=== PATIENT | male | born 1975 | race Caucasian/White ===

== ENCOUNTER 2022-06-01 14:57 | Inpatient (IN) | payer OTHER, SELFPAY ==
[2022-06-01 15:46] VITALS: BP 131/84; PULSE 129; RESP 16; TEMP 36.8; O2SAT 96; BMI 27.0
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
[2022-06-01 16:10] LABS: MANUAL DIFF FLAG NO
[2022-06-01 16:12] LABS: Appearance Urine Clear; Basophils Percent Auto 0.4 % (0-2); Color Urine Yellow; Eosinophils Absolute Auto 0.1 X10*3/uL (0.0-0.4); Eosinophils Percent Auto 0.5 % (0-4); Glucose Urine UA Negative (Negative); Hematocrit 47.3 % (42.0-52.0); Hemoglobin 17.5 g/dl (14.0-18.0); Imm Gran Abs Auto 0.03 X10*3/uL (0.00-0.03); Imm Gran Pct Auto 0.3 % (0.0-0.4); Leukocyte Esterase Urine Trace (Negative); Lymphocytes Absolute Auto 2.4 X10*3/uL (1.2-4.9); Lymphocytes Percent Auto 23.6 % (20-40); Mean Corpuscular Hemoglobin 32.8 pg (27.0-33.0); Mean Corpuscular Volume 88.6 fL (80.0-98.0); Mean Platelet Volume 9.7 fL (9.4-12.4); Monocytes Absolute Auto 0.7 X10*3/uL (0.1-1.2); Monocytes Percent Auto 6.8 % (2-11); Neutrophils Percent Auto 68.4 % (45-73); Nitrite Urine Negative (Negative); PH 6.5 (5.0-8.0); Platelet Count 226 X10*3/uL (160-400); Red Blood Count 5.34 X10*6/uL (4.60-5.80); Red Cell Distribution Width 11.8 % (11.0-16.0); Urine Blood Negative (Negative); Urine Ketones Negative (Negative); Urine Protein Negative (Neg-Trace); White Blood Count 10.2 X10*3/uL (4.8-10.8)
[2022-06-01 16:17] LABS: Bacteria Urine None Seen (None Seen); Hyaline Casts Urine 0-2 /LPF (0-2); RBC Urine 0-2 /HPF (0-2); Squamous Epithelial Cell Urine 0-2 /HPF (0-2); WBC Urine 0-5 /HPF (0-5)
[2022-06-01 16:30] LABS: COVID-19 Test Negative (Negative)
[2022-06-01 16:31] LABS: Amphetamine Screen Urine POSITIVE (Not Detect); Barbiturates, Urine Not Detected (Not Detect); Benzodiazepines Screen Urine Not Detected (Not Detect); Cannabinoid Screen Urine Not Detected (Not Detect); Cocaine Screen Urine Not Detected (Not Detect); Fentanyl, urine Not Detected (Not Detect); Opiate Screen Urine Not Detected (Not Detect); Phencyclidine Screen Urine Not Detected (Not Detect)
[2022-06-01 16:32] LABS: Alanine Aminotransferase 128 U/L (0-40); Albumin Level 4.6 g/dL (3.5-5.0); Alkaline Phosphatase 73 U/L (39-117); Anion Gap 19 (12-20); Aspartate Amino Transferase 86 U/L (5-37); Bilirubin Direct 0.8 mg/dL (0.0-0.5); Bilirubin Total 1.9 mg/dL (0.0-1.0); Blood Urea Nitrogen 13 mg/dL (9-16); Calcium 9.6 mg/dL (8.4-10.2); Carbon Dioxide 25 mmol/L (22-29); Chloride 95 mmol/L (96-108); Creatinine Clr Calc Pharmacy 116.5; Estimated Glomerular Filt Rate > 60; Ethanol 181 mg/dL; Glucose Random 161 mg/dL (60-115); Potassium 3.5 mmol/L (3.3-5.1); Sodium 135 mmol/L (135-145); Total Protein 7.8 g/dL (6.5-8.0)
--- NOTE | 2022-06-01 16:35 | ECG_ITS ---
Test Reason : TACHYCARDIA Blood Pressure : / mmHG Vent. Rate : 114 BPM Atrial Rate : 114 BPM P-R Int : 188 ms QRS Dur : 100 ms QT Int : 324 ms P-R-T Axes : 049 066 034 degrees QTc Int : 446 ms Sinus tachycardia Otherwise normal ECG When compared with ECG of 09-AUG-2012 11:50, Vent. rate has increased BY 51 BPM Referred By: Laura Zhou Electronically Signed By:GEORGINA WADE
[2022-06-01 16:38] VITALS: BP 129/87; PULSE 112; RESP 18; TEMP 37.1; O2SAT 95
[2022-06-01] MEDS: chlordiazePOXIDE HCl 25 MG CAPSULE PO (16:50)
[2022-06-01 21:02] VITALS: BP 123/90; PULSE 116; RESP 20; TEMP 37.4; O2SAT 95
[2022-06-01] MEDS: LORazepam 1 MG TABLET 2 MG PO (21:41)
--- NOTE | 2022-06-02 05:59 | PC.NURSE ---
Patient slept through the night, no distress observed/reported, asymptomatic of withdrawal at this time, PRN Ativan 2 mg administered at 2141, behavior pleasant and non concerning, medication compliant, patient was assessed by N, patient engaged well, disposition per [facility] is section 12 inpatient bed search, will continue to monitor.
[2022-06-02 06:38] VITALS: BP 122/83; PULSE 85; RESP 16; TEMP 36.6; O2SAT 95
[2022-06-02 12:08] VITALS: BP 122/87; PULSE 76; RESP 15; O2SAT 96
[2022-06-02] MEDS: LORazepam 1 MG TABLET 2 MG PO ×2 (12:09→20:31)
[2022-06-02] MEDS: Nicotine 14 MG PATCH.TD24 TRANSDERMA (17:10)
[2022-06-02 20:36] VITALS: BP 125/93; PULSE 87; RESP 16; TEMP 36.6; O2SAT 98
[2022-06-03 05:32] VITALS: BP 125/90; PULSE 84; RESP 16; TEMP 36.6; O2SAT 98
--- NOTE | 2022-06-03 06:16 | PC.NURSE ---
Patient slept through the night, no distress observed/reported, behavior non concerning and pleasant, disposition per [facility] is section 12 inpatient bed search, medication compliant, no homed medication, VSS, will continue to monitor.
[2022-06-03] MEDS: Nicotine 21 MG PATCH.TD24 TRANSDERMA (11:19)
[2022-06-03] MEDS: LORazepam 1 MG TABLET 2 MG PO (11:19)
[2022-06-03 14:09] LABS: COVID-19 Test Negative (Negative); IDNOW Serial# 16C4AD1C
[2022-06-03] MEDS: LORazepam 1 MG TABLET PO ×2 (16:28→20:32)
[2022-06-03] MEDS: Gabapentin 300 MG CAPSULE PO ×2 (16:28→20:33)
--- NOTE | 2022-06-03 17:53 | PC.NURSE ---
Pt signed 3-day notice on 06/03/22, up on 06/06/22
[2022-06-03 18:00] VITALS: BP 127/83; PULSE 92; TEMP 36.8; O2SAT 98
--- NOTE | 2022-06-03 19:02 | PC.ADMIT ---
pt is a 46 year old male who presents with [facility] with a plan and manic moods.pt is tox positve for amphetamines. pt reports drinking alcohol before admission. pt recently separately from his and is feels like his life is falling apart, but he wants to put it back together. pt is in a long legal young with ex and is form his 2 children which gives him anxiety and he feels like he isn't being the best dad he can for his children. pt appears to be engaged during admission and bright. pt is open to sharing experiences about his past. pt says he want to get on mood stabilizers and says antidepressants do not work. pt signed a 3 day that is up on the 06 of june. pt wants to get better for his children and his aging mother who requires help in the home.
[2022-06-03] MEDS: traZODone HCL 50 MG TABLET PO (21:45)
[2022-06-04 06:00] VITALS: BP 127/70; PULSE 85; RESP 18; TEMP 36.6; O2SAT 97
[2022-06-04] MEDS: Gabapentin 300 MG CAPSULE PO ×3 (08:59→20:31)
[2022-06-04] MEDS: hydrOXYzine HCL 25 MG TABLET PO (09:04)
[2022-06-04] MEDS: Acetaminophen 325 MG TABLET 650 MG PO (09:04)
[2022-06-04] MEDS: Nicotine 21 MG PATCH.TD24 TRANSDERMA (09:07)
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
[2022-06-04 18:00] VITALS: BP 110/74; PULSE 93; TEMP 36.3; O2SAT 97
[2022-06-04] MEDS: cloNIDine HCL 0.1 MG TABLET PO (20:32)
[2022-06-04] MEDS: lamoTRIgine 25 MG TABLET PO (20:34)
[2022-06-04] MEDS: traZODone HCL 50 MG TABLET PO (21:56)
[2022-06-05 08:44] LABS: Alanine Aminotransferase 75 U/L (0-40); Alkaline Phosphatase 50 U/L (39-117); Aspartate Amino Transferase 38 U/L (5-37); Bilirubin Direct 0.3 mg/dL (0.0-0.5); Bilirubin Total 0.8 mg/dL (0.0-1.0); Total Protein 6.7 g/dL (6.5-8.0)
[2022-06-05] MEDS: Gabapentin 300 MG CAPSULE PO ×2 (09:26→21:58)
[2022-06-05 09:30] VITALS: BP 117/72; PULSE 90; RESP 16; TEMP 36.3; O2SAT 97
--- NOTE | 2022-06-05 10:23 | P.PNPSI_ITS ---
Subjective Subjective Date of Service: 06/05/22 Reason For Visit: depression Interim History: Reports he is in a good mood, no SI; no medication side effects. Had some trouble with his roommate last night, woke up and remained was staring at him, going through his things. Patient slept in another room. He says he understands that this peer has problems and is not upset about it. Patient said he is hopeful about staying sober and thinks that mood stabilizer will be helpful. He says he knows he should have gotten back into AA and that this is his plan going forward. Patient talked with his and says he is ready for discharge tomorrow. Mental Status Exam Mental Status Exam Narrative: Pt is alert and oriented; behavior is cooperative, friendly, talkative; inte rmittently tearful; dressed in casual attire, unshaven but adequate hygiene; mood is described as depressed and affect congruent; eye contact appropriate; Speech is normal rate, volume and prosody and not pressured; no psychomotor agitation/retardation present; thought process is organized and goal directed; Thought content is on tx; otherwise pertinent to relevant topics and without any delusional content, paranoid ideations or grandiosity; denies any SI/HI. There is no evidence of perceptual disturbance. Patients insight and judgment appear intact. Diagnostics Vital Signs (24Hr): Vital Signs - 24 hr 06/04/22 18:00 06/05/22 09:30 Temperature 97.4 F 97.4 F Pulse Rate 93 90 Respiratory Rate 16 Blood Pressure 110/74 117/72 Pulse Oximetry 97 97 Oxygen Delivery Method Room Air BMI result Body Mass Index 27.0 Labs Results: 06/01/22 16:05 06/01/22 16:05 Labs: Laboratory Results - last 48 hr 06/03/22 06/05/22 13:43 07:56 Total Bilirubin 0.8 Direct Bilirubin 0.3 AST 38 H D ALT 75 H Alkaline Phosphatase 50 D Total Protein 6.7 Albumin 4.0 COVID-19 (LEE) Negative COVID-19 Clin Com See Note Medications Medications Current Medications Al Hydroxide/Mg Hydroxide (Magnesium Hydrox/Alum Hydrox 30 Ml Oral.Susp) 30 ml PO Q6H PRN PRN Reason: Heartburn/Nausea Clonidine HCl (Clonidine Hcl 0.1 Mg Tablet) 0.1 mg PO BEDTIME ARMANDO; Protocol Last Admin: 06/04/22 20:32 Dose: 0.1 mg Gabapentin (Gabapentin 300 Mg Capsule) 300 mg PO BID ARMANDO Stop: 06/06/22 23:55 Last Admin: 06/05/22 09:26 Dose: 300 mg Gabapentin (Gabapentin 300 Mg Capsule) 300 mg PO ONCE ONE Stop: 06/07/22 09:01 Hydroxyzine HCl (Hydroxyzine Hcl 25 Mg Tablet) 25 mg PO Q6H PRN PRN Reason: Anxiety Last Admin: 06/04/22 09:04 Dose: 25 mg Ibuprofen (Ibuprofen 600 Mg Tablet) 600 mg PO Q8H PRN PRN Reason: Pain, Mild (Pain Scale 1-3) Lamotrigine (Lamotrigine 25 Mg Tablet) 25 mg PO BEDTIME ARMANDO Last Admin: 06/04/22 20:34 Dose: 25 mg Lorazepam (Lorazepam 1 Mg Tablet) 2 mg PO Q2H PRN PRN Reason: CIWA =>13 Lorazepam (Lorazepam 1 Mg Tablet) 1 mg PO Q2H PRN PRN Reason: CIWA 8-12 Last Admin: 06/03/22 20:32 Dose: 1 mg Magnesium Hydroxide (Milk Of Magnesia 30 Ml Oral.Susp) 30 ml PO DAILY PRN PRN Reason: Constipation Nicotine (Nicotine 21 Mg Patch.Td24) 21 mg TRANSDERMA DAILY PRN PRN Reason: smoking cessation Last Admin: 06/04/22 09:07 Dose: 21 mg Nicotine Polacrilex (Nicotine Polacrilex 2 Mg Gum) 4 mg BUCCAL Q2H PRN PRN Reason: Nicotine Cravings Trazodone HCl (Trazodone Hcl 50 Mg Tablet) 50 mg PO BEDTIME PRN PRN Reason: Insomnia Last Admin: 06/04/22 21:56 Dose: 50 mg Allergies Allergies Allergy/AdvReac Type Severity Reaction Status Date / Time No Known Allergies Allergy Unverified 06/30/20 14:57 Assessment & Plan Assessment & Plan (1) MDD (major depressive disorder), recurrent episode, mild: Status: Acute Code(s): F33.0 - Major depressive disorder, recurrent, mild (2) ADHD: Status: Suspected Code(s): F90.9 - Attention-deficit hyperactivity disorder, unspecified type (3) Malingering: Status: Acute Code(s): Z76.5 - Malingerer [conscious simulation] Plan Patient is a 46-year-old male with history of alcohol abuse, remote history of cocaine/opiate abuse in sustained remission, ADD, and mild mood lability who presents reporting depression and SI in the face of marital strife and relapse on alcohol. On admission patient clearly says that he is not suicidal at all and lied about being suicidal so that he could get inpatient admission. He said that it is very difficult to get a hold of a psychiatric provider and he feels that he needs a mood stabilizer and so fabricated SI in order to gain access. -patient admits to malingering -patient in minimal withdrawal; having relapse for 5-7 days -discussed medication and patient agrees to trial of Lamictal; reviewed risks/side effects including but not limited to Tad Shook's, patient understands, ask questions and agrees. Although malingering, patient does have history of depression and mild mood lability with anxiety; says has not tolerated to trials with antidepressants which have both made him irritable. Will start Lamictal which is a mood stabilizer but is helpful for depression/anxiety 06/05 mood is better, not tearful; no SI. Tolerating medication and says ready to go home tomorrow. Patient is not in imminent risk for harm to self or others and ready to be discharged. Plan: Three day notice Q 15 minute checks DC CIWA; no withdrawal symptoms Continue Lamictal 25 mg q.h.s. Patient buys Adderall on the street; says he does not abuse it. He asks for h elp getting outpatient services and says he Will discuss this with outpatient provider I spent minutes with the patient and/or on the patient floor today, greater than?50% of which was spent counseling/coordinating care. Patient educated on: medication risk/benefits Reason for contiued inpatient stay Substantial Risk for: stable for discharge
--- NOTE | 2022-06-05 16:13 | PM.PSYDC ---
DS: Providers Provider Date of Service: 06/06/22 Date of admission: 06/03/22 14:47 Date of discharge: 06/06/22 Primary care physician: Thalia Physician Attending physician on admission: Emmanuel Freire Attending physician on discharge: Emmanuel Freire DS: Diagnosis Discharge Diagnosis (1) MDD (major depressive disorder), recurrent episode, mild: Status: Acute (2) ADHD: Status: Suspected (3) Malingering: Status: Acute DS: Medications Discharge Medications Home Medications: Previous Rx's Medication Instructions Recorded clonidine HCl 0.1 mg tablet 0.1 mg PO BEDTIME PRN insomnia 30 06/05/22 days #30 tabs lamotrigine 25 mg tablet See Rx Instructions .Route 06/05/22 .COMPLEX #54 tabs lamotrigine 25 mg tablet (Lamictal) 75 mg PO DAILY 30 days #90 tabs 06/05/22 nicotine 21 mg/24 hr daily 21 mg transdermal DAILY PRN 06/05/22 transdermal patch smoking cessation 28 days #28 ea Mental Status Exam Mental Status Exam Patient Appearance: Appropriate Patient Orientation: Person, Place, Time and Situation Level of Consciousness: Awake and Alert Patient Behavior: Appropriate, Talkative, Cooperative and Good Eye Contact Mood Description: Calm and Appropriate Affect Description: Calm and Appropriate Patient Cognition Impaired: No Ability to Follow Directions: Good Speech Pattern: Spontaneous Speech Memory Description: Intact Hallucinations: None Delusions: Not Present Thought Process: Intact Thought Content: positive for Intact Judgement: Good Data Data Completed and Pending Completed studies during hospitalization [Text1]: 06/01/22 06/01/22 06/01/22 16:01 16:05 16:05 WBC 10.2 RBC 5.34 Hgb 17.5 Hct 47.3 MCV 88.6 MCH 32.8 MCHC 37.0 H RDW 11.8 Plt Count 226 MPV 9.7 Immature Gran % (Auto) 0.3 Neut % (Auto) 68.4 Lymph % (Auto) 23.6 [place] % (Auto) 6.8 Eos % (Auto) 0.5 Baso % (Auto) 0.4 Lymph # (Auto) 2.4 Mclennan # (Auto) 0.7 Eos # (Auto) 0.1 Baso # (Auto) 0.0 Abs Immat Gran (auto) 0.03 Absolute Neuts (auto) 7.0 Absolute Nucleated RBC 0.000 Nucleated RBC % (auto) 0.0 Sodium 135 Potassium 3.5 Chloride 95 L Carbon Dioxide 25 Anion Gap 19 BUN 13 Creatinine 0.86 Estim Creat Clear Calc 116.5 Estimated GFR > 60 Random Glucose 161 H Calcium 9.6 Total Bilirubin 1.9 H Direct Bilirubin 0.8 H AST 86 H ALT 128 H Alkaline Phosphatase 73 Total Protein 7.8 Albumin 4.6 Urine Color Urine Appearance Urine pH Ur Specific [place] Urine Protein Urine Glucose (UA) Urine Ketones Urine Blood Urine Nitrite Ur Leukocyte Esterase Urine RBC Urine WBC Ur Squamous Epith Cells Urine Bacteria Hyaline Casts Urine Opiates Screen Urine Fentanyl Screen Ur Barbiturates Screen Ur Phencyclidine Scrn Ur Amphetamines Screen U Benzodiazepines Scrn Urine Cocaine Screen U Marijuana (THC) Screen Ethyl Alcohol 181 COVID-19 (LEE) Negative COVIDPlatypus TV See Note 06/01/22 06/01/22 06/03/22 16:05 16:05 13:43 WBC RBC Hgb Hct MCV MCH MCHC RDW Plt Count MPV Immature Gran % (Auto) Neut % (Auto) Lymph % (Auto) Mclennan % (Auto) Eos % (Auto) Baso % (Auto) Lymph # (Auto) Mclennan # (Auto) Eos # (Auto) Baso # (Auto) Abs Immat Gran (auto) Absolute Neuts (auto) Absolute Nucleated RBC Nucleated RBC % (auto) Sodium Potassium Chloride Carbon Dioxide Anion Gap BUN Creatinine Estim Creat Clear Calc Estimated GFR Random Glucose Calcium Total Bilirubin Direct Bilirubin AST ALT Alkaline Phosphatase Total Protein Albumin Urine Color Yellow Urine Appearance Clear Urine pH 6.5 Ur Specific [place] 1.010 Urine Protein Negative Urine Glucose (UA) Negative Urine Ketones Negative Urine Blood Negative Urine Nitrite Negative Ur Leukocyte Esterase Trace H Urine RBC 0-2 Urine WBC 0-5 Ur Squamous Epith Cells 0-2 Urine Bacteria None Seen Hyaline Casts 0-2 Urine Opiates Screen Not Detected Urine Fentanyl Screen Not Detected Ur Barbiturates Screen Not Detected Ur Phencyclidine Scrn Not Detected Ur Amphetamines Screen POSITIVE H U Benzodiazepines Scrn Not Detected Urine Cocaine Screen Not Detected U Marijuana (THC) Screen Not Detected Ethyl Alcohol COVID-19 (LEE) Negative COVIDPlatypus TV See Note 06/05/22 07:56 WBC RBC Hgb Hct MCV MCH MCHC RDW Plt Count MPV Immature Gran % (Auto) Neut % (Auto) Lymph % (Auto) [place]clennan % (Auto) Eos % (Auto) Baso % (Auto) Lymph # (Auto) [place]cl[place] # (Auto) Eos # (Auto) Baso # (Auto) Abs Immat Gran (auto) Absolute Neuts (auto) Absolute Nucleated RBC Nucleated RBC % (auto) Sodium Potassium Chloride Carbon Dioxide Anion Gap BUN Creatinine Estim Creat Clear Calc Estimated GFR Random Glucose Calcium Total Bilirubin 0.8 Direct Bilirubin 0.3 AST 38 H D ALT 75 H Alkaline Phosphatase 50 D Total Protein 6.7 Albumin 4.0 Urine Color Urine Appearance Urine pH Ur Specific [place] Urine Protein Urine Glucose (UA) Urine Ketones Urine Blood Urine Nitrite Ur Leukocyte Esterase Urine RBC Urine WBC Ur Squamous Epith Cells Urine Bacteria Hyaline Casts Urine Opiates Screen Urine Fentanyl Screen Ur Barbiturates Screen Ur Phencyclidine Scrn Ur Amphetamines Screen U Benzodiazepines Scrn Urine Cocaine Screen U Marijuana (THC) Screen Ethyl Alcohol COVID-19 ([facility]E) COVID-19 Clin Com DS: Summary Hospital Course Hospital Course: HPI: Patient is a 46-year-old male with history of alcohol abuse, remote history of cocaine/opiate abuse in sustained remission, ADD, and mild mood lability who self presented and reported depression and SI in the face of marital strife and relapse on alcohol for about 5 days.? However, On admission patient clearly stated that he is not suicidal at all and lied about being suicidal so that he could get inpatient admission in order to get help finding an outpt provider.? He said that it is very difficult to get a hold of a psychiatric provider and he feels that he needs a mood stabilizer and so fabricated SI in order to gain access. Pt however did have arguement with his which spurred his relapse and worsened his depression and pt will benefit from treatment. Hospital course: On admission patient admitted to lying about a suicidality for secondary gain; however he reported mild-moderate depression and wants medication to help with it. Patient detoxed from Alcohol without any incident at all, not scoring on CIWA. He was started on Lamictal for mood, saying that both Paxil and Wellbutrin caused irritability. Patient was appropriate with peers and staff and attending groups. He reported that his mood was better and he felt ready for discharge (signed a 3 day notice on the day of admission). He continued to deny any SI. He planned to re-engage with AA meetings which he used to attend the past and found very helpful. Patient is returning home. He is not in imminent risk for harm to self or others and his request for discharge honored Time spent discussing smoking cessation with patient: 3 to 10 minutes Status at Discharge Functional status at discharge: independent ambulation Overall status at discharge: patient is back to baseline Time Spent with Patient Time attestation: Total time spent providing and/or coordinating discharge services: Time spent: Less than 30 minutes Discharge Plan Discharge Patient Disposition: Home, Self-Care Discharge Diagnosis: Adjustment disorder, with disturbance of mood; in full remission Referrals: Akil Shepherd [Other] - 06/08/22 11:00 am (Diagnostic evaluation for therapy in office at [facility] Patient needs to attend appointment in order to receive medication management services.) Katina Sandy [Other] - 07/02/22 2:20 pm (Initial Psychiatric Evaluation with Psychiatrist Appointment is by tele-health. Check your email for a link to the appointment.) Katina Sandy [Other] - 08/01/22 12:40 pm (Medication Management appointment with psychiatric provider. Appointment is by tele-health. Please check your email for a link to the appointment.) Physician,None [Primary Care Provider] - 1 Week (PT WILL SCHEDULE OWN APPOINTMENTS AT HIS REQUEST) Discharge Medications: New nicotine 21 mg/24 hr Patch 24 Hour 21 mg transdermal DAILY PRN (Reason: smoking cessation) 28 Days Qty: 28 0RF Rx Instructions: remove at bedtime clonidine HCl 0.1 mg Tablet 0.1 mg PO BEDTIME PRN (Reason: insomnia) 30 Days Qty: 30 0RF Protocol: Hold for SBP< HOLD for SBP < : 90 lamotrigine 25 mg Tablet See Rx Instructions .ROUTE .COMPLEX Qty: 54 0RF Rx Instructions: take 1 tab for 11 days; then take 2 tabs for 14 days; then take 3 tabs daily lamotrigine [Lamictal] 25 mg tablet 75 mg PO DAILY 30 Days Qty: 90 0RF Rx Instructions: take after complete 50mg for 2 weeks Discharge Orders: Discharge Order (Routine); Ordered 06/06/22 Ordered By: Emmanuel Freire Diet: Regular diet Activity on Discharge: As tolerated Stand Alone Forms: Patient Portal Discharge page, Community Support Care Plan Goals: Maintain mood and safe behaviors Take medications as prescribed Continue to pursue sobriety Practice coping skills Continue with outpatient providers and reach out to them as needed Health Concerns: Mood stability and behaviors Sobriety Plan of Treatment: Follow up with your psychiatric provider and other outpatient providers regarding above concerns Take medications as prescribed Assessment: Risk assessment at time of discharge:? Patient was interviewed prior to discharge and found to be fully oriented and without any SI or HI. Patient has insight and demonstrates good judgment in terms of wanting to pursue treatment. Patient is not in imminent risk of harm to self or others and has a safety plan that includes presenting to the closest ER or calling 911 if feeling unsafe.? Patient has been observed closely by nursing and unit staff throughout admission; patient has not engaged in any behaviors that suggest dangerousness to self or others and has demonstrated appropriate behaviors and impulse control Discharge Date/Time: 06/06/22 11:20
[2022-06-05 21:33] VITALS: BP 131/73; PULSE 80; TEMP 36.6; O2SAT 98
[2022-06-05] MEDS: cloNIDine HCL 0.1 MG TABLET PO (21:58)
[2022-06-05] MEDS: traZODone HCL 50 MG TABLET PO (21:58)
[2022-06-05] MEDS: lamoTRIgine 25 MG TABLET PO (21:58)
[2022-06-06] MEDS: Gabapentin 300 MG CAPSULE PO ×2 (09:19)
[2022-06-06] MEDS: Nicotine 21 MG PATCH.TD24 TRANSDERMA (09:19)
[2022-06-06] MEDS: Ibuprofen 600 MG TABLET PO (09:19)
[2022-06-06 10:03] VITALS: BP 109/85; PULSE 68; RESP 16; TEMP 36.3; O2SAT 97
--- NOTE | 2022-06-06 16:23 | HO.PSYCHPN ---
Subjective Subjective Date of Service: 06/06/22 Reason For Visit: depression Interim History: Met with pt who reports he is prepared for discharge. No current medication questions or questions about his plan of care. Reports a positive, helpful admission and expresses gratitude to his team for their work with him. Medication Compliance: Yes Side effects from medications: No Attending Groups: Intermittent Review of Systems Acute medical concerns: No Medical Review of Systems: unchanged Review of Systems Psychiatric: Reports no additional psychiatric complaints Mental Status Exam Mental Status Exam Patient Appearance: Appropriate Patient Orientation: Person, Place, Time and Situation Level of Consciousness: Awake and Alert Patient Behavior: Appropriate, Talkative, Cooperative and Good Eye Contact Mood Description: Calm and Appropriate Affect Description: Calm and Appropriate Patient Cognition Impaired: No Ability to Follow Directions: Good Speech Pattern: Spontaneous Speech Memory Description: Intact Hallucinations: None Delusions: Not Present Thought Process: Intact Thought Content: positive for Intact Judgement: Good Diagnostics Vital Signs (24Hr): Vital Signs - 24 hr 06/05/22 21:33 06/06/22 10:03 Temperature 97.9 F 97.4 F Pulse Rate 80 68 Respiratory Rate 16 Blood Pressure 131/73 109/85 Pulse Oximetry 98 97 Oxygen Delivery Method Room Air Room Air BMI result Body Mass Index 27.0 Labs Results: 06/01/22 16:05 06/01/22 16:05 Labs: Laboratory Results - last 48 hr 06/05/22 07:56 Total Bilirubin 0.8 Direct Bilirubin 0.3 AST 38 H D ALT 75 H Alkaline Phosphatase 50 D Total Protein 6.7 Albumin 4.0 Medications Allergies Allergies Allergy/AdvReac Type Severity Reaction Status Date / Time No Known Allergies Allergy Unverified 06/30/20 14:57 Assessment & Plan Assessment & Plan (1) MDD (major depressive disorder), recurrent episode, mild: Status: Acute Code(s): F33.0 - Major depressive disorder, recurrent, mild (2) ADHD: Status: Suspected Code(s): F90.9 - Attention-deficit hyperactivity disorder, unspecified type (3) Malingering: Status: Acute Code(s): Z76.5 - Malingerer [conscious simulation] Plan Patient is a 46-year-old male with history of alcohol abuse, remote history of cocaine/opiate abuse in sustained remission, ADD, and mild mood lability who presents reporting depression and SI in the face of marital strife and relapse on alcohol. On admission patient clearly says that he is not suicidal at all and lied about being suicidal so that he could get inpatient admission. He said that it is very difficult to get a hold of a psychiatric provider and he feels that he needs a mood stabilizer and so fabricated SI in order to gain access. -patient admits to malingering -patient in minimal withdrawal; having relapse for 5-7 days -discussed medication and patient agrees to trial of Lamictal; reviewed risks/side effects including but not limited to Tad Shook's, patient understands, ask questions and agrees. Although malingering, patient does have history of depression and mild mood lability with anxiety; says has not tolerated to trials with antidepressants which have both made him irritable. Will start Lamictal which is a mood stabilizer but is helpful for depression/anxiety 06/05 mood is better, not tearful; no SI. Tolerating medication and says ready to go home tomorrow. Patient is not in imminent risk for harm to self or others and ready to be discharged. 06/06/22 Discharge today. Plan: Three day notice Q 15 minute checks DC CIWA; no withdrawal symptoms Continue Lamictal 25 mg q.h.s. Patient buys Adderall on the street; says he does not abuse it. He asks for help getting outpatient services and says he Will discuss this with outpatient provider I spent minutes with the patient and/or on the patient floor today, greater than?50% of which was spent counseling/coordinating care. Patient educated on: therapeutic strategies Informed Consent: understands Reason for contiued inpatient stay Substantial Risk for: stable for discharge
== END 2022-06-06 11:20 | disposition home or self-care (01) | DRG 751 ==
LOC: HO.ED 06-03 14:40 → HO.PM5 06-03 14:48
PROVIDERS: Student in an Organized Health Care Education/Training Program; Admitting Provider Psychiatry & Neurology Psychiatry; Emergency Provider Emergency Medicine; Visit Provider Psychiatry & Neurology Psychiatry
DX: F33.0 Major depressive disorder, recurrent, mild (principal); R45.851 Suicidal ideations; F98.8 Other specified behavioral and emotional disorders with onset usually occurring in childhood and adolescence; B19.20 Unspecified viral hepatitis C without hepatic coma; Z20.822 Contact with and (suspected) exposure to COVID-19; Z76.5 Malingerer [conscious simulation]; F17.210 Nicotine dependence, cigarettes, uncomplicated; Z71.6 Tobacco abuse counseling; Z79.899 Other long term (current) drug therapy
CPT/HCPCS: 36415; 80053; 80076; 80307; 81001; 82077; 82248; 85025; 87635; 93005; 99285